=== PATIENT | female | born 1945 | race Caucasian/White ===

== ENCOUNTER 2018-12-10 20:27 | Emergency (ER) | payer MEDICARE, OTHER ==
[~2018-12-10] VITALS: Ht 157.5 cm; Wt 65.5 kg
[~2018-12-10 20:27] MED LIST: AMLO5 PO; ASPI325 PO; BUTASPCAFT PO; FISH1000 PO; FOLI1 PO; INVOKANA300 MG PO; ISODIN10 PO; ISODIN20 PO; ISOSORB; METF500 PO; METO50 PO; MULVITMIND PO; NIAC500 PO; OLME20 PO; PRAV20 PO; TRADJENTA5 MG PO; VALS80 PO; VITB100 PO; [UNRECOGNIZED DRUG - REMARK] PO
[2018-12-10 21:27] LABS: BASOPHILS ABSOLUTE AUTO 0.03 K/mm3 (0.00-0.23); BASOPHILS PERCENT AUTO 0 % (0-2); EOSINOPHILS PERCENT AUTO 0 % (0-6); Hematocrit 46.1 % (33.0-51.0); Hemoglobin 15.3 g/dL (11.5-16.0); IMMATURE GRAN ABSOLUTE AUTO 0.05 K/mm3 (0.00-0.10); IMMATURE GRAN PERCENT AUTO 1 % (0-1); LYMPHOCYTES ABSOLUTE AUTO 0.66 K/mm3 (0.84-5.20); LYMPHOCYTES PERCENT AUTO 7 % (21-46); MONOCYTES ABSOLUTE AUTO 0.73 K/mm3 (0.16-1.47); MONOCYTES PERCENT AUTO 8 % (4-13); Mean Corpuscular HGB 31.2 pg (26.0-34.0); Mean Corpuscular HGB Conc 33.2 g/dL (31.5-36.5); Mean Corpuscular Volume 94 fL (80-100); NEUTROPHILS PERCENT AUTO 84 % (41-73); Platelet Count 190 K/mm3 (150-400); RDW Coefficient Variation 12.9 % (11.7-14.2); RDW Standard Deviation 44.2 fL (35.1-46.3); White Blood Cell Count 9.17 K/mm3 (4.00-11.30)
[2018-12-10 21:44] LABS: Albumin, Blood 4.3 g/dL (3.4-5.0); Bilirubin, Total 0.5 mg/dL (0.1-1.0); Bun/Creatinine Ratio 23.3 (12.0-20.0); Calcium, Blood 9.6 mg/dL (8.5-10.1); Creatinine, Blood 1.03 mg/dL (0.40-1.00); Globulin, Blood 4.4 g/dL (2.2-4.0); Total Protein, Blood 8.7 g/dL (6.4-8.2)
[2018-12-10 22:40] LABS: Source, Urine Clean Catch
[2018-12-10 22:41] LABS: Bilirubin, Urine Neg (Neg); Blood, Urine 1+ (Neg); Glucose Qualitative, Urine 4+ (Neg); Ketones, Urine 2+ (Neg); Leukocyte Esterase, Urine 2+ (Neg); Nitrite, Urine Neg (Neg); Protein, Urine 1+ (Neg); Specific Gravity, Urine 1.015 (1.003-1.022); Urobilinogen, Urine NORM (Normal)
[2018-12-10] MEDS ORDERED: METF500 PO (22:47)
[2018-12-10] MEDS ORDERED: METO50 PO (22:48)
[2018-12-10] MEDS ORDERED: TRULICITY0.75 MG/0. (22:48)
[2018-12-10] MEDS ORDERED: Pravachol40 MG PO (22:48)
[2018-12-10] MEDS ORDERED: ISODIN20 PO (22:48)
[2018-12-10 22:53] LABS: Appearance, Urine Clear (Clear); Color, Urine Yellow (P-Yellow)
[2018-12-10 22:54] LABS: Bacteria Mod /hpf; Red Blood Cells, Urine 0-2 /hpf (0-2); Squamous Epithelial Cells Few /hpf (Few)
[2018-12-10] MEDS ORDERED: CEPH500 PO (23:18)
== END 2018-12-10 23:50 | disposition home or self-care (01) ==
LOC: ER 20:27
PROVIDERS: Physician Assistant
DX: M54.2 Cervicalgia (principal); N39.0 Urinary tract infection, site not specified; W18.30XA Fall on same level, unspecified, initial encounter; Z79.899 Other long term (current) drug therapy; Z79.82 Long term (current) use of aspirin; Z79.84 Long term (current) use of oral hypoglycemic drugs; I10 Essential (primary) hypertension; E11.9 Type 2 diabetes mellitus without complications; E78.00 Pure hypercholesterolemia, unspecified
CPT/HCPCS: 36415; 70450; 72125; 80053; 81001; 85025; 87086; 99284-25

== ENCOUNTER → 2024-04-02 | Outpatient (CLI) | payer MEDICARE, OTHER ==
[~2024-04-02] MED LIST changes: +ACET325 PO; +CEPH500 PO; +CLOP75 PO; +Calcium Carbon500 MG PO; +JARDIANCE25 MG PO; +LOSARTAN POTASS25 M2 PO; +METOPROLOL TART50 M9 PO; +Pravachol40 MG PO; +TRULICITY0.75 MG/0.; +TRULICITY1.5 MG/0.1 SC; +[UNRECOGNIZED DRUG - CODE] PO
[2024-04-03 16:13] LABS: Microalb/Creat Ratio UR, Rand 13.283 mg/g (0.000-30.000); Microalbumin, Random Urine 26.3 mg/L (0.000-20.000)
== END | disposition home or self-care (01) ==
LOC: LAB SHORT 18:44 → LAB 18:44 → LAB FUT 03-17 12:40
PROVIDERS: Nurse Practitioner Family
DX: E11.42 Type 2 diabetes mellitus with diabetic polyneuropathy (principal); E11.22 Type 2 diabetes mellitus with diabetic chronic kidney disease; N18.2 Chronic kidney disease, stage 2 (mild)
CPT/HCPCS: 82043; 82570

== ENCOUNTER 2024-06-01 22:43 | Emergency (ER) | payer MEDICARE, OTHER ==
[~2024-06-01] VITALS: Ht 152.4 cm; Wt 52.2 kg
[2024-06-01 23:09] VITALS: BP 198/88
== END 2024-06-01 23:21 | disposition home or self-care (01) ==
LOC: ER 22:43
DX: R51.9 Headache, unspecified (principal); I10 Essential (primary) hypertension; E78.00 Pure hypercholesterolemia, unspecified; E11.9 Type 2 diabetes mellitus without complications; Z79.02 Long term (current) use of antithrombotics/antiplatelets; Z79.899 Other long term (current) drug therapy
CPT/HCPCS: 99283

== ENCOUNTER 2024-08-05 06:21 | Emergency (ER) | payer MEDICARE, OTHER ==
[~2024-08-05] VITALS: Ht 160 cm; Wt 56.7 kg
[2024-08-05 06:37] VITALS: BP 145/93
== END 2024-08-05 07:43 | disposition home or self-care (01) ==
LOC: ER 06:21
DX: S00.03XA Contusion of scalp, initial encounter (principal); E78.00 Pure hypercholesterolemia, unspecified; E11.9 Type 2 diabetes mellitus without complications; Z86.73 Personal history of transient ischemic attack (TIA), and cerebral infarction without residual deficits; Z79.85 Long-term (current) use of injectable non-insulin antidiabetic drugs; Z79.84 Long term (current) use of oral hypoglycemic drugs; Z79.01 Long term (current) use of anticoagulants; Z79.899 Other long term (current) drug therapy; W18.39XA Other fall on same level, initial encounter
CPT/HCPCS: 70450; 99283-25

== ENCOUNTER 2024-08-26 13:29 | Emergency (ER) | payer MEDICARE, OTHER ==
[~2024-08-26] VITALS: Ht 152.4 cm; Wt 54.4 kg
[2024-08-26 16:51] LABS: BASOPHILS ABSOLUTE AUTO 0.05 K/mm3 (0.00-0.23); BASOPHILS PERCENT AUTO 1 % (0-2); EOSINOPHILS ABSOLUTE AUTO 0.04 K/mm3 (0.00-0.68); EOSINOPHILS PERCENT AUTO 1 % (0-6); Hematocrit 40.4 % (33.0-51.0); Hemoglobin 13.3 g/dL (11.5-16.0); IMMATURE GRAN ABSOLUTE AUTO 0.02 K/mm3 (0.00-0.10); IMMATURE GRAN PERCENT AUTO 0 % (0-1); LYMPHOCYTES ABSOLUTE AUTO 1.31 K/mm3 (0.84-5.20); LYMPHOCYTES PERCENT AUTO 23 % (21-46); MONOCYTES ABSOLUTE AUTO 0.34 K/mm3 (0.16-1.47); MONOCYTES PERCENT AUTO 6 % (4-13); Mean Corpuscular HGB 33.2 pg (26.0-34.0); Mean Corpuscular HGB Conc 32.9 g/dL (31.5-36.5); Mean Corpuscular Volume 101 fL (80-100); Mean Platelet Volume 10.9 fL (9.1-12.4); NEUTROPHILS ABSOLUTE AUTO 3.84 K/mm3 (1.96-9.15); NEUTROPHILS PERCENT AUTO 69 % (41-73); Platelet Count 165 K/mm3 (150-400); RDW Coefficient Variation 13.4 % (11.7-14.2); RDW Standard Deviation 49.6 fL (35.1-46.3); Red Blood Cell Count 4.01 M/mm3 (3.80-5.20)
[2024-08-26 17:08] LABS: Albumin, Blood 3.1 g/dL (3.4-5.0); Albumin/Globulin Ratio 0.9 (0.8-1.8); Bilirubin, Total 1.2 mg/dL (0.1-1.0); Bun/Creatinine Ratio 19.8 (12.0-20.0); Calcium, Blood 8.4 mg/dL (8.5-10.1); Creatinine, Blood 0.96 mg/dL (0.40-1.00); Globulin, Blood 3.3 g/dL (2.2-4.0); Total Protein, Blood 6.4 g/dL (6.4-8.2)
[2024-08-26 17:45] VITALS: BP 111/80
[2024-08-26 17:55] LABS: Source, Urine Clean Catch
[2024-08-26 18:00] LABS: Appearance, Urine Clear (Clear); Blood, Urine 1+ (Neg); Color, Urine Yellow (P-Yellow); Glucose Qualitative, Urine 4+ (Neg); Ketones, Urine 4+ (Neg); Leukocyte Esterase, Urine Neg (Neg); Nitrite, Urine Neg (Neg); Protein, Urine 2+ (Neg); Specific Gravity, Urine 1.025 (1.003-1.022); Urobilinogen, Urine NORM (Normal)
[2024-08-26 18:17] LABS: Bilirubin, Urine 1+ (Neg)
[2024-08-26 18:22] LABS: Calcium Oxalate Crystals Few /hpf
[2024-08-26 18:23] LABS: Bacteria Few /hpf; Red Blood Cells, Urine 0-2 /hpf (0-2); Squamous Epithelial Cells Few /hpf (Few)
== END 2024-08-26 19:12 | disposition home or self-care (01) ==
LOC: ER 13:29
PROVIDERS: Physician Assistant
DX: R55 Syncope and collapse (principal); E86.0 Dehydration; E11.9 Type 2 diabetes mellitus without complications; Z86.73 Personal history of transient ischemic attack (TIA), and cerebral infarction without residual deficits; Z79.899 Other long term (current) drug therapy; Z79.84 Long term (current) use of oral hypoglycemic drugs
CPT/HCPCS: 71046; 80053; 81001; 84484; 85025; 93005; 93010; 99284-25

== ENCOUNTER 2024-09-02 13:05 | Observation (INO) | payer MEDICARE, OTHER ==
[~2024-09-02] VITALS: Ht 157.5 cm; Wt 48.0 kg
[~2024-09-02 13:05] MED LIST changes: -[UNRECOGNIZED DRUG - CODE] PO
[2024-09-02] MEDS ORDERED: NS 1,000 ML IV SCH ×2 (14:00→16:35)
[2024-09-02 14:23] LABS: Bilirubin, Total 0.7 mg/dL (0.1-1.0); Bun/Creatinine Ratio 43.6 (12.0-20.0); Creatinine, Blood 1.4 mg/dL (0.40-1.00); Potassium, Blood 3.8 mmol/L (3.5-5.5)
[2024-09-02 14:26] LABS: BASOPHILS ABSOLUTE AUTO 0.04 K/mm3 (0.00-0.23); BASOPHILS PERCENT AUTO 0 % (0-2); EOSINOPHILS ABSOLUTE AUTO 0.08 K/mm3 (0.00-0.68); EOSINOPHILS PERCENT AUTO 1 % (0-6); Hematocrit 44.6 % (33.0-51.0); Hemoglobin 15.7 g/dL (11.5-16.0); IMMATURE GRAN ABSOLUTE AUTO 0.04 K/mm3 (0.00-0.10); IMMATURE GRAN PERCENT AUTO 0 % (0-1); LYMPHOCYTES ABSOLUTE AUTO 1.36 K/mm3 (0.84-5.20); LYMPHOCYTES PERCENT AUTO 14 % (21-46); MONOCYTES ABSOLUTE AUTO 0.64 K/mm3 (0.16-1.47); MONOCYTES PERCENT AUTO 7 % (4-13); Mean Corpuscular HGB 33.7 pg (26.0-34.0); Mean Corpuscular HGB Conc 35.2 g/dL (31.5-36.5); Mean Corpuscular Volume 96 fL (80-100); NEUTROPHILS ABSOLUTE AUTO 7.71 K/mm3 (1.96-9.15); NEUTROPHILS PERCENT AUTO 78 % (41-73); RDW Coefficient Variation 13.9 % (11.7-14.2); RDW Standard Deviation 48.2 fL (35.1-46.3); Red Blood Cell Count 4.66 M/mm3 (3.80-5.20); White Blood Cell Count 9.87 K/mm3 (4.00-11.30)
[2024-09-02 15:08] LABS: Mean Platelet Volume 11.2 fL (9.1-12.4); Platelet Count 201 K/mm3 (150-400)
[2024-09-02] MEDS ORDERED: Magnesium Hydroxide Conc 10 ML UDC PO PRN (16:35)
[2024-09-02] MEDS ORDERED: Ondansetron 4 MG TAB PO PRN (16:35)
[2024-09-02] MEDS ORDERED: Calcium Carbonate 500 MG Tab Chew PO PRN (17:20)
[2024-09-02] MEDS ORDERED: Trulicity SC (17:56)
[2024-09-02] MEDS ORDERED: JARDIANCE25 MG PO (17:57)
[2024-09-02] MEDS ORDERED: ISODIN10 PO (17:58)
[2024-09-02] MEDS ORDERED: LOSA25 PO (17:59)
[2024-09-02] MEDS ORDERED: Glucophage 500 mg PO (18:00)
[2024-09-02] MEDS ORDERED: METO100 PO (18:01)
[2024-09-02] MEDS ORDERED: PRAVASTATIN SOD10 M1 PO (18:02)
[2024-09-02 18:32] LABS: Source, Urine Clean Catch
[2024-09-02 18:36] VITALS: BP 132/75
[2024-09-02 18:37] LABS: Appearance, Urine Cloudy (Clear); Blood, Urine Neg (Neg); Glucose Qualitative, Urine 4+ (Neg); Ketones, Urine 3+ (Neg); Leukocyte Esterase, Urine 3+ (Neg); Nitrite, Urine Neg (Neg); Protein, Urine 2+ (Neg); Specific Gravity, Urine 1.025 (1.003-1.022); Urobilinogen, Urine NORM (Normal)
[2024-09-02 18:44] LABS: Bilirubin, Urine 1+ (Neg); Color, Urine Pale Yellow (P-Yellow)
[2024-09-02 18:45] LABS: Amorphous Heavy (0-Heavy); Bacteria Few /hpf; Red Blood Cells, Urine 0-2 /hpf (0-2); Squamous Epithelial Cells Few /hpf (Few); Uric Acid Crystals Few /hpf
--- NOTE | 2024-09-02 19:21 | NUR ---
PATIENT ARRIVED TO FLOOR @ 1827 ACCOMPANIED BY JESSICA PATE, HER HEALTHCARE PROXY. C/O SOME DISCOMFORT TO CYNDEE @ IV SITE. REPORT TO ONCOMING RN.
[2024-09-02 19:39] VITALS: BP 124/73
[2024-09-02] MEDS ORDERED: Metoprolol Tartrate 50 MG Tab PO SCH (21:00)
[2024-09-02] MEDS ORDERED: Pravastatin Sodium 20 MG Tab PO SCH (21:00)
[2024-09-02] MEDS ORDERED: Enoxaparin 30 MG/0.3 ML SYR SC SCH (21:00)
[2024-09-03 04:24] VITALS: BP 121/76
--- NOTE | 2024-09-03 04:57 | NUR ---
SUMMARY: PT A/OX4, IS PLEASANT AND COOPERATIVE W/CARE AND SPECIFIES NEEDS WHEN STAFF IN ROOM. SHE'S MILDLY FORGETFULL AND IMPULSIVE TO VOID BUT IS EASILY REDIRECTABLE. 1PA W/FWW AND GB REQUIRED TO BSC. IV INFILTRATED AND NEW PG WAS PLACED TO ROXI W/NS INFUSING PER EMAR. TUMS AND MOM RECEIVED PER PT REQUEST FOR "GI UPSET AND NEED FOR BM". BED ALARM ON FOR FALL RISK. NO ACUTE CHANGES, VSS AND AFEBRILE. WILL REPORT TO DAY RN.
[2024-09-03 06:54] LABS: BASOPHILS ABSOLUTE AUTO 0.02 K/mm3 (0.00-0.23); BASOPHILS PERCENT AUTO 0 % (0-2); EOSINOPHILS ABSOLUTE AUTO 0.06 K/mm3 (0.00-0.68); EOSINOPHILS PERCENT AUTO 1 % (0-6); Hematocrit 37.9 % (33.0-51.0); Hemoglobin 13.2 g/dL (11.5-16.0); IMMATURE GRAN ABSOLUTE AUTO 0.02 K/mm3 (0.00-0.10); IMMATURE GRAN PERCENT AUTO 0 % (0-1); LYMPHOCYTES ABSOLUTE AUTO 1.53 K/mm3 (0.84-5.20); LYMPHOCYTES PERCENT AUTO 19 % (21-46); MONOCYTES ABSOLUTE AUTO 0.71 K/mm3 (0.16-1.47); MONOCYTES PERCENT AUTO 9 % (4-13); Mean Corpuscular HGB 33.5 pg (26.0-34.0); Mean Corpuscular HGB Conc 34.8 g/dL (31.5-36.5); Mean Corpuscular Volume 96 fL (80-100); Mean Platelet Volume 10.2 fL (9.1-12.4); NEUTROPHILS ABSOLUTE AUTO 5.63 K/mm3 (1.96-9.15); NEUTROPHILS PERCENT AUTO 71 % (41-73); Platelet Count 142 K/mm3 (150-400); RDW Coefficient Variation 13.5 % (11.7-14.2); Red Blood Cell Count 3.94 M/mm3 (3.80-5.20); White Blood Cell Count 7.97 K/mm3 (4.00-11.30)
[2024-09-03 07:14] LABS: Albumin, Blood 2.9 g/dL (3.4-5.0); Albumin/Globulin Ratio 0.9 (0.8-1.8); Bilirubin, Total 0.6 mg/dL (0.1-1.0); Bun/Creatinine Ratio 43.4 (12.0-20.0); Calcium, Blood 8.8 mg/dL (8.5-10.1); Creatinine, Blood 0.97 mg/dL (0.40-1.00); Globulin, Blood 3.2 g/dL (2.2-4.0); Potassium, Blood 3.9 mmol/L (3.5-5.5); Total Protein, Blood 6.1 g/dL (6.4-8.2)
[2024-09-03 07:20] VITALS: BP 107/60
[2024-09-03] MEDS ORDERED: Insulin Human Lispro 100 Units/ML 3ML Syringe SC SCH (07:30)
--- NOTE | 2024-09-03 07:38 | NUR ---
ASSUMPTION OF CARE: ASSUMED CARE OF PATIENT. ASLEEP DURING SHIFT CHANGE REPORT. LYING IN BED. BREATHING EVEN AND UNLABORED ON ROOM AIR. BED IN LOWEST POSITION. CALL LIGHT WITHIN REACH. NO ACUTE NEEDS.
[2024-09-03] MEDS ORDERED: NS 1,000 ML IV SCH (07:45)
[2024-09-03] MEDS ORDERED: Clopidogrel Bisulfate 75 MG Tab PO SCH (09:00)
[2024-09-03] MEDS ORDERED: Calcium Carbon500 MG PO (12:07)
[2024-09-03] MEDS ORDERED: CLOP75 PO (12:08)
[2024-09-03] MEDS ORDERED: DULCOLAX400 MG/5 M PO (12:09)
[2024-09-03] MEDS ORDERED: LOSA25 PO (12:09)
--- NOTE | 2024-09-03 13:38 | NUR ---
VOICEMAIL FOR PATIENT'S NIECE, CAMI, LETTING HER KNOW PATIENT IS READY FOR DISCHARGE AND ASKING WHAT SHE PLANS FOR TRANSPORTATION.
--- NOTE | 2024-09-03 16:35 | NUR ---
DISCHARGE SUMMARY: A&Ox4. PLEASANT AND COOPERATIVE WITH CARE. CALLS APPROPRIATELY AND IS ABLE TO ADVOCATE NEEDS EFFECTIVELY. CONTINENT OF BOWEL AND BLADDER AND IMPULSIVE TO VOID AND BED ALARM ACTIVATED. 1PA c FWW TO BATHROOM OR SBA TO BSC. LBM TODAY. MEDS WHOLE c FLUIDS. NO TELE. NO C/O PAIN OR DISCOMFORT ASIDE FROM A SLIGHT HEADACH. NO NEW MEDICATIONS; INSTRUCTED TO STOP TRULICITY AND JARDIANCE AND FOLLOW-UP WITH PRIMARY CARE PROVIDER IN 2 WEEKS. TEACHING PROVIDED TO FAMILY REGARDING FINDING PLACEMENT, PROTEIN AND FLUIDS AND CKD. LEFT FLOOR AT 1425 WITH ALL BELONGINGS AND DISCHARGE PACKET, ESCORTED BY THIS RN. TRANSPORTATION PROVIDED BY POV BY JESSICA PATE.
[2024-09-03] MEDS ORDERED: Enoxaparin 40 MG/0.4 ML SYR SC SCH (21:00)
== END 2024-09-03 14:25 | disposition home health service (06) ==
LOC: ER 13:05 → MEDS 13:06 → ENPENDDIS 09-03 12:59 → MEDS 09-03 14:25
PROVIDERS: Student in an Organized Health Care Education/Training Program; ADMIT Internal Medicine
DX: N17.9 Acute kidney failure, unspecified (principal); F03.90 Unspecified dementia, unspecified severity, without behavioral disturbance, psychotic disturbance, mood disturbance, and anxiety; E11.9 Type 2 diabetes mellitus without complications; E78.00 Pure hypercholesterolemia, unspecified; I10 Essential (primary) hypertension; Z86.73 Personal history of transient ischemic attack (TIA), and cerebral infarction without residual deficits; Z79.84 Long term (current) use of oral hypoglycemic drugs; Z79.899 Other long term (current) drug therapy
CPT/HCPCS: 76770; 80053; 81001; 82947; 85025; 87086; 96360; 96361; 96372; 99285-25; A6590; A9270; G0378; J1650; J7030

== ENCOUNTER 2024-09-09 15:46 | Emergency (ER) | payer MEDICARE, OTHER ==
[~2024-09-09] VITALS: Ht 160 cm; Wt 54.4 kg
[~2024-09-09 15:46] MED LIST changes: +DULCOLAX400 MG/5 M PO; +Glucophage 500 mg PO; +LOSA25 PO; +METO100 PO; +PRAVASTATIN SOD10 M1 PO; +Trulicity SC
[2024-09-09 16:25] LABS: BASOPHILS ABSOLUTE AUTO 0.03 K/mm3 (0.00-0.23); BASOPHILS PERCENT AUTO 1 % (0-2); EOSINOPHILS ABSOLUTE AUTO 0.06 K/mm3 (0.00-0.68); EOSINOPHILS PERCENT AUTO 1 % (0-6); Hemoglobin 14.3 g/dL (11.5-16.0); IMMATURE GRAN ABSOLUTE AUTO 0.02 K/mm3 (0.00-0.10); IMMATURE GRAN PERCENT AUTO 0 % (0-1); LYMPHOCYTES ABSOLUTE AUTO 1.17 K/mm3 (0.84-5.20); LYMPHOCYTES PERCENT AUTO 19 % (21-46); MONOCYTES ABSOLUTE AUTO 0.64 K/mm3 (0.16-1.47); MONOCYTES PERCENT AUTO 10 % (4-13); Mean Corpuscular HGB 33.2 pg (26.0-34.0); Mean Corpuscular Volume 97 fL (80-100); Mean Platelet Volume 9.8 fL (9.1-12.4); NEUTROPHILS PERCENT AUTO 70 % (41-73); Platelet Count 230 K/mm3 (150-400); RDW Coefficient Variation 13.7 % (11.7-14.2); RDW Standard Deviation 48.4 fL (35.1-46.3); Red Blood Cell Count 4.31 M/mm3 (3.80-5.20); White Blood Cell Count 6.32 K/mm3 (4.00-11.30)
[2024-09-09 17:22] LABS: Albumin, Blood 3.7 g/dL (3.4-5.0); Bilirubin, Total 0.8 mg/dL (0.1-1.0); Bun/Creatinine Ratio 19.6 (12.0-20.0); Calcium, Blood 8.9 mg/dL (8.5-10.1); Creatinine, Blood 1.07 mg/dL (0.40-1.00); Globulin, Blood 3.8 g/dL (2.2-4.0); Total Protein, Blood 7.5 g/dL (6.4-8.2)
[2024-09-09] MEDS ORDERED: Lactated Ringer's 1,000 ML IV SCH (17:30)
[2024-09-09] MEDS ORDERED: Potassium Chloride 20 MEQ/15 ML UDC PO ONE (18:30)
[2024-09-09 18:43] LABS: Source, Urine Clean Catch
[2024-09-09 18:51] LABS: Appearance, Urine Clear (Clear); Bilirubin, Urine Neg (Neg); Blood, Urine Neg (Neg); Color, Urine Yellow (P-Yellow); Glucose Qualitative, Urine 4+ (Neg); Ketones, Urine 1+ (Neg); Leukocyte Esterase, Urine Neg (Neg); Nitrite, Urine Neg (Neg); Protein, Urine 1+ (Neg); Specific Gravity, Urine 1.015 (1.003-1.022); Urobilinogen, Urine NORM (Normal)
[2024-09-09 20:30] VITALS: BP 136/70
[2024-09-09] MEDS ORDERED: METO100 PO (20:39)
== END 2024-09-09 20:57 | disposition home or self-care (01) ==
LOC: ER 15:46
PROVIDERS: Emergency Medicine; Student in an Organized Health Care Education/Training Program
DX: R55 Syncope and collapse (principal); E86.0 Dehydration; E87.6 Hypokalemia; I10 Essential (primary) hypertension; E78.00 Pure hypercholesterolemia, unspecified; E11.9 Type 2 diabetes mellitus without complications; F03.90 Unspecified dementia, unspecified severity, without behavioral disturbance, psychotic disturbance, mood disturbance, and anxiety; Z86.73 Personal history of transient ischemic attack (TIA), and cerebral infarction without residual deficits; Z79.84 Long term (current) use of oral hypoglycemic drugs; Z79.01 Long term (current) use of anticoagulants; Z79.899 Other long term (current) drug therapy; Z59.89 Other problems related to housing and economic circumstances
CPT/HCPCS: 71046; 80053; 84443; 84484; 85025; 93005; 93010; 99284-25; A9270; J7120